=== PATIENT | female | born 1965 | race Two or more races ===

== ENCOUNTER 2024-06-21 10:54 | Emergency (ER) | payer OTHER ==
[~2024-06-21] VITALS: Ht 152.4 cm; Wt 80.0 kg
[2024-06-21 12:49] VITALS: BP 124/67; PULSE 75; RESP 17; TEMP 97.5; O2SAT 97
[2024-06-21] MEDS ORDERED: AMOX500T86 PO (12:56)
[2024-06-21] MEDS ORDERED: NAPR-746 PO (12:56)
== END 2024-06-21 13:05 | disposition home or self-care (01) ==
LOC: ER 10:54
DX: S50.811A Abrasion of right forearm, initial encounter (principal); Z79.899 Other long term (current) drug therapy; W55.01XA Bitten by cat, initial encounter; Y93.89 Activity, other specified; Y92.89 Other specified places as the place of occurrence of the external cause; Y99.8 Other external cause status